=== PATIENT | female | born 2000 | race Caucasian/White ===

== ENCOUNTER 2025-08-11 05:37 | Day surgery (SDC) | payer SELFPAY ==
[2025-08-11 06:04] VITALS: BMI 34.4
[2025-08-11] MEDS ORDERED: hydrALAZINE 20 MG/ML VIAL SLOW IVP PRN (07:10)
[2025-08-11 15:32] LABS: Hematocrit 36.3 % (34.9-44.5); Hemoglobin 11.7 g/dL (12.0-15.5); Mean Corpuscular Hemoglobin 25.4 pg (27.0-33.0); Mean Corpuscular Volume 78.9 fL (81.6-98.3); Platelet Count 245 10x3/uL (150-450); Red Blood Cell (RBC) Count 4.60 10x6/uL (3.90-5.03); White Blood Cell (WBC) Count 17.15 10x3/uL (3.5-10.5)
== END 2025-08-11 10:23 | disposition home or self-care (01) ==
LOC: CSHLD/OP 05:37
PROVIDERS: ATTEND Obstetrics & Gynecology
DX: O47.1 False labor at or after 37 completed weeks of gestation (principal); O99.891 Other specified diseases and conditions complicating pregnancy; R03.0 Elevated blood-pressure reading, without diagnosis of hypertension; Z3A.38 38 weeks gestation of pregnancy
CPT/HCPCS: 85027; 99283

== ENCOUNTER 2025-08-11 14:13 | Inpatient (IN) | payer SELFPAY ==
[2025-08-11] MEDS ORDERED: hydrALAZINE 20 MG/ML VIAL SLOW IVP PRN ×2 (15:27→22:29)
[2025-08-11] MEDS ORDERED: Methylergonovine 0.2 MG/ML VIAL IM PRN ×2 (15:27→22:29)
[2025-08-11] MEDS ORDERED: Diphenoxylate HCl/Atropine Tablet PO PRN ×2 (15:27)
[2025-08-11] MEDS ORDERED: Tranexamic Acid 1,000 MG/10 ML VIAL IVP PRN (15:27)
[2025-08-11] MEDS ORDERED: Lidocaine 1% (PF) 30 ML VIAL SC PRN (15:27)
[2025-08-11] MEDS ORDERED: Ondansetron PF 4 MG/2 ML Vial IVP PRN ×3 (15:27→22:29)
[2025-08-11] MEDS ORDERED: Carboprost 250 MCG/ML AMP IM PRN (15:27)
[2025-08-11] MEDS ORDERED: Oxytocin 30 units/NS 500 ML 500 ML IV SCH ×3 (15:30→22:30)
[2025-08-11] MEDS: fentaNYL/Ropivacaine Epidural 100 ML ONE (15:50)
[2025-08-11] MEDS ORDERED: diphenhydrAMINE 50 MG/ML VIAL IVP PRN (16:01)
[2025-08-11] MEDS ORDERED: Acetaminophen 325 MG TAB PO PRN (16:01)
[2025-08-11 16:15] LABS: Hep B Surf Ag - L&D Non-Reactive S/CO (NonReactive)
[2025-08-11] MEDS ORDERED: Communication Order-Pharmacy FS SCH (16:15)
[2025-08-11] MEDS ORDERED: fentaNYL 2 mcg/Ropivacaine 0.2% Epidural 100 ML CADD EPIDURAL SCH (16:15)
[2025-08-11 16:17] LABS: Syphilis Antibody Index 0.04 S/CO (<1.00 Non-Reactive)
[2025-08-11 18:26] VITALS: BMI 34.4
[2025-08-11] MEDS: Calcium Carbonate 500 MG ChewTAB PO PRN (18:32)
[2025-08-11] MEDS ORDERED: Methylergonovine 0.2 MG TAB PO PRN (22:29)
[2025-08-11] MEDS ORDERED: Boostrix 0.5 ML (Tdap) VIAL (>/=7 yrs of age) IM ONE (22:29)
[2025-08-11] MEDS ORDERED: Preparation H Ointment 28 GM TUBE PR PRN (22:29)
[2025-08-11] MEDS ORDERED: Lanolin Ointment 7 GM TUBE TOP PRN (22:29)
[2025-08-11] MEDS ORDERED: Milk Of Magnesia 30 ML UDCUP PO PRN (22:29)
[2025-08-11] MEDS ORDERED: Bisacodyl 10 MG SUPP PR PRN (22:29)
[2025-08-11] MEDS ORDERED: diphenhydrAMINE 25 MG CAP PO PRN (22:29)
[2025-08-11] MEDS: Ibuprofen 800 MG TAB PO PRN (23:33)
[2025-08-12] MEDS: Benzocaine-Menthol 82.5 ML CAN TOP PRN (02:21)
[2025-08-12] MEDS: HYDROcodone/Acetaminophen 5/325 mg Tablet PO SCH (04:00)
[2025-08-12 05:14] LABS: Hematocrit 28.9 % (34.9-44.5); Hemoglobin 9.2 g/dL (12.0-15.5)
[2025-08-12] MEDS: Ibuprofen 800 MG TAB PO SCH (06:11)
[2025-08-12] MEDS: Ferrous Sulfate 325 MG TAB PO SCH (08:17)
[2025-08-12] MEDS ORDERED: Acetaminophen 500 MG TAB PO PRN (10:33)
[2025-08-12] MEDS: HYDROcodone/Acetaminophen 5/325 mg Tablet PO PRN (11:09)
[2025-08-13 07:57] VITALS: BP 121/81; TEMP 98.9
== END 2025-08-13 12:30 | disposition home or self-care (01) | DRG 807 ==
LOC: CSHLD/OP 14:13 → CSHLD 15:13 → CSHPED 08-12 00:30
PROVIDERS: ADMIT Obstetrics & Gynecology; ATTEND Obstetrics & Gynecology
PROC: 10E0XZZ Delivery of Products of Conception, External Approach (ICD-10-PCS; principal; 2025-08-11)
PROC: 0KQM0ZZ Repair Perineum Muscle, Open Approach (ICD-10-PCS; 2025-08-11)
PROC: 3E0334Z Introduction of Serum, Toxoid and Vaccine into Peripheral Vein, Percutaneous Approach (ICD-10-PCS; 2025-08-12)
DX: O26.893 Other specified pregnancy related conditions, third trimester (principal); Z37.0 Single live birth; O42.02 Full-term premature rupture of membranes, onset of labor within 24 hours of rupture; Z3A.38 38 weeks gestation of pregnancy; O70.1 Second degree perineal laceration during delivery; Z23 Encounter for immunization; Z67.11 Type A blood, Rh negative; O69.81X0 Labor and delivery complicated by cord around neck, without compression, not applicable or unspecified; O32.6XX0 Maternal care for compound presentation, not applicable or unspecified; O90.89 Other complications of the puerperium, not elsewhere classified; R39.11 Hesitancy of micturition
CPT/HCPCS: 36415; 51702; 85014; 85018; 85461; 86780; 86850; 86900; 86901; 87340; 90384; 96372; J7120